=== PATIENT | male | born 1980 | race Two or more races ===

== ENCOUNTER 2017-01-29 07:52 | Emergency (ER) | payer SELFPAY ==
--- NOTE | 2017-01-29 07:59 | EDM.PDOC ---
ED HPI GENERAL MEDICAL PROBLEM - General Chief Complaint: Skin Complaint Stated Complaint: SWOLLEN AND PAINFUL RIGHT KNEE Time Seen by Provider: 01/29/17 08:05 Source of Information: Reports: Patient History Limitations: Reports: No Limitations - History of Present Illness INITIAL COMMENTS - FREE TEXT/NARRATIVE: History of present illness: []4 days ago patient felt a bump on his right knee and tried to pop it and has since become more red and painful with drainage. He states he had one for some fevers last night but mostly feels heat and as needed. He is ambulatory. When patient was a child he did get a piece of glass in his knee that is still inside him. He questions if the bump he felt was the glass. Review of systems: As per history of present illness and below otherwise all systems reviewed and negative. Past medical history: As per history of present illness and as reviewed below otherwise noncontributory. Surgical history: As per history of present illness and as reviewed below otherwise noncontributory. Social history: No reported history of drug or alcohol abuse. Family history: As per history of present illness and as reviewed below otherwise noncontributory. Physical exam: General: Well developed, well nourished in NAD HEENT: Atraumatic, normocephalic, pupils reactive, negative for conjunctival pallor or scleral icterus, mucous membranes moist, throat clear, neck supple, nontender, trachea midline. Lungs: Clear to auscultation, breath sounds equal bilaterally, chest nontender. Heart: S1S2, regular, negative for clicks, rubs, or JVD. Abdomen: Soft, nondistended, nontender. Negative for masses or hepatosplenomegaly. Negative for costovertebral tenderness. Pelvis: Stable nontender. Genitourinary: Deferred. Rectal: Deferred. Extremities: Atraumatic, negative for cords or calf pain. Neurovascular unremarkable. Neuro: Awake, alert, oriented. Cranial nerves II through XII unremarkable. Cerebellum unremarkable. Motor and sensory unremarkable throughout. Exam nonfocal. Diagnostics: []Labs and x-rays done as well as blood cultures Therapeutics: []IV fluids, pain meds, Vanco given the ED Impression: []Right knee cellulitis with possible early septic arthritis, we did not have orthopedics business support liaison today in this facility. Plan: [][facility] excepted this patient to the ER by Dr. Carolina for further evaluation and treatment Definitive disposition and diagnosis as appropriate pending reevaluation and review of above. Right Knee Pain Score (Numeric/FACES): 10 - Related Data Allergies Allergy/AdvReac Type Severity Reaction Status Date / Time No Known Allergies Allergy Verified 01/29/17 08:09 Home Meds: Home Meds . [No Known Home Meds] 01/29/17 [History] ED ROS GENERAL - Review of Systems Review Of Systems: See Below (See history of present illness) ED EXAM, SKIN/RASH Exam: See Below (See history of present illness) Course - Vital Signs Last Recorded V/S: Last Vital Signs Temp 98.6 F 01/29/17 08:03 Pulse 78 01/29/17 09:27 Resp 14 01/29/17 09:27 BP 125/68 01/29/17 09:27 Pulse Ox 94 L 01/29/17 09:27 - Orders/Labs/Meds Orders: Active Orders 24 hr Category Date Time Status Knee 3V Rt [CR] Stat Exams 01/29/17 08:29 Taken CULTURE BLOOD [BC] Stat Lab 01/29/17 08:12 Received CULTURE BLOOD [BC] Stat Lab 01/29/17 08:21 Received Sodium Chloride 0.9% [Saline Flush] Med 01/29/17 08:25 Active 10 ml FLUSH ASDIRECTED PRN Sodium Chloride 0.9% [Saline Flush] Med 01/29/17 08:25 Active 2.5 ml FLUSH ASDIRECTED PRN Vancomycin [Vancocin] 1 gm Med 01/29/17 09:15 Active Sodium Chloride 0.9% [Normal Saline] 250 ml IV ONETIME Blood Culture x2 Reflex Set [OM.PC] Stat Oth 01/29/17 08:25 Ordered Saline Lock Insert [OM.PC] Stat Oth 01/29/17 08:25 Ordered Medication Orders Vancomycin HCl 1 gm/ Sodium (Chloride) 250 mls @ 250 mls/hr IV ONETIME ONE Stop: 01/29/17 10:14 Last Admin: 01/29/17 09:36 Dose: 250 mls/hr Sodium Chloride (Saline Flush) 10 ml FLUSH ASDIRECTED PRN PRN Reason: Keep Vein Open Sodium Chloride (Saline Flush) 2.5 ml FLUSH ASDIRECTED PRN PRN Reason: Keep Vein Open Labs: Laboratory Tests 01/29/17 01/29/17 01/29/17 Range/Units 08:21 08:21 08:21 WBC 17.97 H (4.0-11.0) K/uL RBC 4.29 L (4.50-5.90) M/uL Hgb 13.7 (13.0-17.0) g/dL Hct 39.5 (38.0-50.0) % MCV 92.1 (80.0-98.0) fL MCH 31.9 (27.0-32.0) pg MCHC 34.7 (31.0-37.0) g/dL RDW Std Deviation 45.0 (28.0-62.0) fl RDW Coeff of Gabriela 13 (11.0-15.0) % Plt Count 331 (150-400) K/uL MPV 10.90 (7.40-12.00) fL Neut % (Auto) 79.0 (48.0-80.0) % Lymph % (Auto) 13.0 L (16.0-40.0) % Pitt % (Auto) 7.6 (0.0-15.0) % Eos % (Auto) 0.3 (0.0-7.0) % Baso % (Auto) 0.1 (0.0-1.5) % Neut # (Auto) 14.2 H (1.4-5.7) K/uL Lymph # (Auto) 2.3 (0.6-2.4) K/uL Pitt # (Auto) 1.4 H (0.0-0.8) K/uL Eos # (Auto) 0.1 (0.0-0.7) K/uL Baso # (Auto) 0.0 (0.0-0.1) K/uL Nucleated RBC % 0.0 /100WBC Nucleated RBCs # 0 K/uL ESR 56 H (0-14) mm/hr Sodium 138 (136-146) mmol/L Potassium 4.1 (3.5-5.1) mmol/L Chloride 104 (98-110) mmol/L Carbon Dioxide 23 (21-31) mmol/L BUN 11 (6.0-23.0) mg/dL Creatinine 0.8 (0.6-1.5) mg/dL Est Cr Clr Drug Dosing 126.43 mL/min Estimated GFR (MDRD) > 60.0 ml/min Glucose 129 H (60-110) mg/dL Calcium 9.8 (8.8-10.8) mg/dL Total Bilirubin 0.5 (0.1-1.5) mg/dL AST 20 (5-40) IU/L ALT 21 (8-54) IU/L Alkaline Phosphatase 90 (40-150) C-Reactive Protein 21.02 H (0.0-0.5) mg/dL Total Protein 7.8 (6.0-8.0) g/dL Albumin 4.0 (3.5-5.0) g/dL Globulin 3.8 H (2.0-3.5) g/dL Albumin/Globulin Ratio 1.1 L (1.3-2.8) Meds: Medications Generic Name Dose Route Start Last Admin Trade Name Freq PRN Reason Stop Dose Admin Vancomycin HCl 1 gm/ Sodium 250 mls @ 250 mls/hr 01/29/17 09:15 01/29/17 09: 36 Chloride IV 01/29/17 10:14 250 mls/hr ONETIME ONE Administration Sodium Chloride 10 ml 01/29/17 08:25 Saline Flush FLUSH ASDIRECTED PRN Keep Vein Open Sodium Chloride 2.5 ml 01/29/17 08:25 Saline Flush FLUSH ASDIRECTED PRN Keep Vein Open Discontinued Medications Generic Name Dose Route Start Last Admin Trade Name Freq PRN Reason Stop Dose Admin Sodium Chloride 1,000 mls @ 999 mls/hr 01/29/17 08:27 01/29/17 08:37 Normal Saline IV 01/29/17 09:27 999 mls/hr .Bolus ONE Administration Morphine Sulfate 6 mg 01/29/17 08:27 01/29/17 08:34 Morphine IVPUSH 01/29/17 08:28 6 mg ONETIME ONE Administration Ondansetron HCl 4 mg 01/29/17 08:27 01/29/17 09:25 Zofran IVPUSH 01/29/17 08:28 Not Given ONETIME ONE Departure - Departure Time of Disposition: 09:49 Disposition: DC/Tfer to Acute Hospital 02 Condition: Good Clinical Impression: Right knee skin infection - Discharge Information Forms: ED Department Discharge - My Orders Last 24 Hours: My Active Orders 01/29/17 08:12 CULTURE BLOOD [BC] Stat 01/29/17 08:21 CULTURE BLOOD [BC] Stat 01/29/17 08:25 Sodium Chloride 0.9% [Saline Flush] 10 ml FLUSH ASDIRECTED PRN Sodium Chloride 0.9% [Saline Flush] 2.5 ml FLUSH ASDIRECTED PRN Blood Culture x2 Reflex Set [OM.PC] Stat Saline Lock Insert [OM.PC] Stat 01/29/17 08:29 Knee 3V Rt [CR] Stat 01/29/17 09:15 Vancomycin [Vancocin] 1 gm Sodium Chloride 0.9% [Normal Saline] 250 ml IV ONETIME - Assessment/Plan Last 24 Hours: My Active Orders 01/29/17 08:12 CULTURE BLOOD [BC] Stat 01/29/17 08:21 CULTURE BLOOD [BC] Stat 01/29/17 08:25 Sodium Chloride 0.9% [Saline Flush] 10 ml FLUSH ASDIRECTED PRN Sodium Chloride 0.9% [Saline Flush] 2.5 ml FLUSH ASDIRECTED PRN Blood Culture x2 Reflex Set [OM.PC] Stat Saline Lock Insert [OM.PC] Stat 01/29/17 08:29 Knee 3V Rt [CR] Stat 01/29/17 09:15 Vancomycin [Vancocin] 1 gm Sodium Chloride 0.9% [Normal Saline] 250 ml IV ONETIME
[2017-01-29] MEDS ORDERED: Sodium Chloride 0.9% 2.5 ML Syringe FLUSH PRN (08:25)
[2017-01-29] MEDS ORDERED: Sodium Chloride 0.9% 10 ML Syringe FLUSH PRN (08:25)
[2017-01-29] MEDS ORDERED: Sodium Chloride 0.9% 1,000 ML IV ONE (08:27)
[2017-01-29] MEDS ORDERED: Morphine 2 MG/ML Syringe IVPUSH ONE (08:27)
[2017-01-29 09:16] LABS: CHLORIDE,CL 104 mmol/L (98-110); SODIUM,NA 138 mmol/L (136-146)
[2017-01-29] MEDS: Ondansetron 4 MG/2 ML SDV IVPUSH ONE ×2 (09:25→09:51)
[2017-01-29] MEDS ORDERED: HYDROmorphone 1 MG/ML Syringe IM ONE (09:44)
[2017-01-29] MEDS ORDERED: Ketorolac 30 MG/ML SDV IVPUSH ONE (09:46)
[2017-01-29] MEDS ORDERED: HYDROmorphone 1 MG/ML Syringe IVPUSH ONE (10:09)
--- NOTE | 2017-01-30 15:41 | CR ---
EXAM DATE: 01/29/17 PATIENT'S AGE: 36 Patient: ADOLFO FORBES Facility: [place], [place] Site . Site : [id number] Study: XRay Knee Right [id number]/3/2017 9:16:05 AM Ordering Physician: Neymar Alexander Final Report: HISTORY: Pain, swelling and cellulitis. TECHNIQUE: Three views of the right knee. COMPARISON: No prior. FINDINGS: There is swelling of the anterior soft tissues of the right knee. A small radiopaque foreign body is present within the anterior soft tissues of the knee measuring on the order of 4 mm in size. There is no acute fracture or malalignment. No bony destructive change. No definite suprapatellar joint effusion. No soft tissue gas. IMPRESSION: 1. Anterior knee soft tissue swelling. 2. 4 mm radiopaque foreign body within the anterior soft tissues of the knee. 3. No acute fracture or bony destructive change. Dictated by Shaw Uribe MD @ 01/29/2017 9:34:25 AM Dictated by: Shaw Uribe MD @ 01/29/2017 09:34:41 (Electronic Signature) Report Signed by Proxy. TIFF
== END 2017-01-29 10:25 ==
LOC: MW.ED 07:52
DX: L03.115 Cellulitis of right lower limb (principal); L08.9 Local infection of the skin and subcutaneous tissue, unspecified
CPT/HCPCS: 36415; 73562; 80053; 85025; 85652; 86140; 87040; 96361; 96365; 96375; 99285; J1170; J1885; J2270; J2405; J3370; J7040; J7050; 99282

== ENCOUNTER 2017-02-03 15:30 | Emergency (ER) | payer SELFPAY ==
--- NOTE | 2017-02-03 15:36 | EDM.PDOC ---
ED HPI GENERAL MEDICAL PROBLEM - General Chief Complaint: Lower Extremity Injury/Pain Stated Complaint: NEED CKUP ON KNEE AFTER SURGERY Time Seen by Provider: 02/03/17 15:35 Source of Information: Reports: Patient History Limitations: Reports: No Limitations - History of Present Illness INITIAL COMMENTS - FREE TEXT/NARRATIVE: History of present illness: []Patient was seen here with septic arthritis of his right knee joint and transferred to [place] for surgery. He was discharged 2 days ago and was supposed to follow up today but was unable to get a ride back to [place]. He called his doctor in [place] and he was told to just come to the emergency room. Patient felt his clindamycin and oxycodone today and started his antibiotics. He denies any fevers Review of systems: As per history of present illness and below otherwise all systems reviewed and negative. Past medical history: As per history of present illness and as reviewed below otherwise noncontributory. Surgical history: As per history of present illness and as reviewed below otherwise noncontributory. Social history: No reported history of drug or alcohol abuse. Family history: As per history of present illness and as reviewed below otherwise noncontributory. Physical exam: General: Well developed, well nourished in NAD HEENT: Atraumatic, normocephalic, pupils reactive, negative for conjunctival pallor or scleral icterus, mucous membranes moist, throat clear, neck supple, nontender, trachea midline. Lungs: Clear to auscultation, breath sounds equal bilaterally, chest nontender. Heart: S1S2, regular, negative for clicks, rubs, or JVD. Abdomen: Soft, nondistended, nontender. Negative for masses or hepatosplenomegaly. Negative for costovertebral tenderness. Pelvis: Stable nontender. Genitourinary: Deferred. Rectal: Deferred. Extremities: Right knee with surgical scar 3 sutures and a drain placed, no swelling and erythema is minimal, negative for cords or calf pain. Neurovascular unremarkable. Neuro: Awake, alert, oriented. Cranial nerves II through XII unremarkable. Cerebellum unremarkable. Motor and sensory unremarkable throughout. Exam nonfocal. Diagnostics: [] Therapeutics: []Drain removed Impression: []Right knee septic arthritis status post surgical irrigation improved Plan: []Continue clindamycin use ibuprofen and ice for pain oxycodone for severe pain return if symptoms worsen or fevers occur. Follow-up primary care requests physical therapy continue to move the knee as much as possible Definitive disposition and diagnosis as appropriate pending reevaluation and review of above. right knee Pain Score (Numeric/FACES): 7 - Related Data Allergies Allergy/AdvReac Type Severity Reaction Status Date / Time No Known Allergies Allergy Verified 02/03/17 15:42 Home Meds: Home Meds . [No Known Home Meds] 01/29/17 [History] Past Medical History - Past Health History Medical/Surgical History: Denies Medical/Surgical History - Infectious Disease History Infectious Disease History: Reports: Chicken Pox Social & Family History - Family History Family Medical History: Noncontributory - Tobacco Use Smoking Status *Q: Light Tobacco Smoker Years of Tobacco use: 10 Packs/Tins Daily: 0.1 - Recreational Drug Use Recreational Drug Use: No Review of Systems - Review of Systems Review Of Systems: See Below (See history of present illness) ED EXAM, GENERAL - Physical Exam Exam: See Below (See history of present illness) Course - Vital Signs Last Recorded V/S: Last Vital Signs Temp 97.7 F 02/03/17 15:42 Pulse 82 02/03/17 15:42 Resp 18 02/03/17 15:42 BP 140/71 02/03/17 15:42 Pulse Ox 97 02/03/17 15:42 - Orders/Labs/Meds Meds: Medications Discontinued Medications Generic Name Dose Route Start Last Admin Trade Name Freq PRN Reason Stop Dose Admin Ketorolac Tromethamine 60 mg 02/03/17 15:49 02/03/17 15:53 Toradol IM 02/03/17 15:50 60 mg ONETIME ONE Administration Departure - Departure Time of Disposition: 16:24 Disposition: Home, Self-Care 01 Condition: Good Clinical Impression: Encounter for wound re-check - Discharge Information Referrals: PCP,None [Primary Care Provider] - Forms: ED Department Discharge Additional Instructions: The following information is given to patients seen in the emergency department who are being discharged to home. This information is to outline your options for follow-up care. We provide all patients seen in our emergency department with a follow-up referral. The need for follow-up, as well as the timing and circumstances, are variable depending upon the specifics of your emergency department visit. If you don't have a primary care physician on staff, we will provide you with a referral. We always advise you to contact your personal physician following an emergency department visit to inform them of the circumstance of the visit and for follow-up with them and/or the need for any referrals to a consulting specialist. The emergency department will also refer you to a specialist when appropriate. This referral assures that you have the opportunity for follow-up care with a specialist. All of these measure are taken in an effort to provide you with optimal care, which includes your follow-up. Under all circumstances we always encourage you to contact your private physician who remains a resource for coordinating your care. When calling for follow-up care, please make the office aware that this follow-up is from your recent emergency room visit. If for any reason you are refused follow-up, please contact the [facility] Emergency Department at and asked to speak to the emergency department charge nurse. Continue clindamycin until gone, Motrin and ice for pain use oxycodone only for severe pain. Follow-up with primary care physician request physical therapy and continue to move her knee as much as possible until then. Return if any symptoms worsen or change. [facility] [address] [place] [id number]
[2017-02-03] MEDS ORDERED: Ketorolac 60 MG/2 ML SDV IM ONE (15:49)
== END 2017-02-03 16:37 | disposition home or self-care (01) ==
LOC: MW.ED 15:30
DX: Z47.89 Encounter for other orthopedic aftercare (principal); F17.210 Nicotine dependence, cigarettes, uncomplicated; Z48.89 Encounter for other specified surgical aftercare
CPT/HCPCS: 96372; 99283; J1885